=== PATIENT | male | born 1990 | race Caucasian/White ===

== ENCOUNTER → 2019-10-25 | Outpatient (CLI) | payer MEDICAID, SELFPAY ==
[2019-10-25 19:08] LABS: M R Staph aureus DNA By PCR Negative (Negative); Probe Check PASS; Specimen Processing Control PASS; Staph aureus DNA By PCR NEGATIVE (Negative)
== END | disposition home or self-care (01) ==
PROVIDERS: Visit Provider Podiatrist
DX: L60.0 Ingrowing nail (principal); M20.5X2 Other deformities of toe(s) (acquired), left foot
CPT/HCPCS: 87070; 87075; 87077; 87186; 87205; 87640

== ENCOUNTER 2020-12-27 13:11 | Outpatient (RCR) | payer MEDICAID, SELFPAY | END 2021-02-27 23:59 | LOC: IMMUN 13:11 | PROVIDERS: Referring Provider Family Medicine; Visit Provider Family Medicine | DX: Z23 Encounter for immunization (principal) | CPT/HCPCS: 0001A; 0002A; 91300 ==